=== PATIENT | male | born 1970 | race Caucasian/White ===

== ENCOUNTER → 2017-02-03 | Outpatient (CLI) | payer BC ==
[~2017-02-03] MED LIST: CLARITIN 10MG T10 MG PO; FLOMAX 0.4MG C0.4 MG PO; PERCOCET 5/3251 EACH PO; SINGULAIR10 MG PO; ZOFRAN4 MG PO
--- NOTE | 2017-02-03 15:10 | RADIOLOGY REPORT PS360 ---
[facility] CLINICAL INDICATION: Posttraumatic pain LEFT SIDE CHEST WALL PAIN ORDERING PHYSICIAN: Aguila Barkley MD PATIENT AGE: 46 years COMPARISON: None FINDINGS: No fracture or dislocation. No lytic or blastic change. No significant degenerative change. IMPRESSION: Negative left clavicle
== END ==
LOC: RAD 14:44
DX: R07.89 Other chest pain (principal)